=== PATIENT | female | born 1935 | race Caucasian/White ===

== ENCOUNTER → 2025-05-26 13:22 | Outpatient (REF) | payer OTHER, SELFPAY | LOC: PAVMRI 13:22 | PROVIDERS: ATTENDING PHYSICIAN Internal Medicine | DX: R51.9 Headache, unspecified (principal); Z86.73 Personal history of transient ischemic attack (TIA), and cerebral infarction without residual deficits | CPT/HCPCS: 70553; A9575 ==

== ENCOUNTER 2025-07-02 19:04 | Emergency (ER) | payer OTHER, SELFPAY ==
[2025-07-02 19:10] VITALS: BP 145/79
[2025-07-02 19:11] VITALS: BP 145/79
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
[2025-07-02 19:36] LABS: Hematocrit 38.9 % (37.0-47.0); Hemoglobin 13.4 g/dL (12.0-16.0); Mean Corp Hgb Conc. 34.4 g/dL (33.0-37.0); Mean Corpuscular Volume 88.0 fL (81.0-99.0); Nucleated Red Blood Cells % 0 %; Platelet Count 194 10^3/uL (130-400); Red Cell Dist. Width 12.0 % (11.5-14.5)
[2025-07-02 19:51] LABS: ALT (SGPT) 16 U/L (0-35); AST (SGOT) 21 U/L (14-36); Albumin 4.2 g/dl (3.5-5.0); Alkaline Phosphatase 94 U/L (38-126); Blood Urea Nitrogen 11 mg/dl (7-17); Calcium 9.2 mg/dl (8.4-10.2); Carbon Dioxide 27 mmol/L (22-30); Chloride 104 mmol/L (98-107); Estimated Creatinine Clearance 48 ml/min; Glucose 145 mg/dl (70-99); Magnesium 1.6 mg/dl (1.6-2.3); Potassium 4.0 mmol/L (3.5-5.1); Sodium 142 mmol/L (135-145); Total Protein 7.1 g/dl (6.3-8.2); eGFR > 60.00
[2025-07-02 20:00] VITALS: BP 146/80
[2025-07-02 20:42] LABS: Urine Character Clear (Clear)
[2025-07-02 20:53] LABS: Urine Red Blood Cell 0-2 /HPF (0-2)
[2025-07-02 20:55] LABS: COVID-19 Antigen Negative (Negative)
[2025-07-02 21:00] VITALS: BP 149/80
[2025-07-02 22:00] VITALS: BP 137/83
[2025-07-02 23:00] VITALS: BP 122/75
[2025-07-03] VITALS: BP 110/73
== END 2025-07-03 00:51 | disposition home or self-care (01) ==
LOC: EMR 19:04
PROVIDERS: Physician Assistant; EMERGENCY PHYSICIAN Emergency Medicine
DX: R53.1 Weakness (principal); R00.0 Tachycardia, unspecified; I49.1 Atrial premature depolarization; Z79.01 Long term (current) use of anticoagulants
CPT/HCPCS: 99284; 70450; 80053; 81003; 81015; 82550; 83735; 84439; 84443; 85025; 87077; 87086; 87502; 87811; 93005

== ENCOUNTER 2025-07-05 18:43 | Observation (INO) | payer OTHER, SELFPAY ==
[2025-07-05] VITALS (11 sets, daily range): BP systolic 116–160; BP diastolic 66–91; PULSE 84–87; BMI 20.1
--- NOTE | 2025-07-05 13:15 | ED.GENMED ---
History of Present Illness
<Bud Valles PA-C - Last Filed: 07/05/25 16:35>
General
Chief Complaint: Fainting/Passed Out
Source: patient
Time Seen by Provider: 07/05/25 12:58
History of Present Illness
History of Present Illness:
89-year-old female currently lives by herself but with close neighbors and family members presents after apparently having another syncopal episode last evening. She was here 3 nights ago after her legs gave out and she fell. She was found on the
floor by her neighbor. There was chicken on the stove that was burning. She thinks she may have passed out at that time. Since then she has had a significant headache that is more severe today. She is on Eliquis. Head CT last visit was
negative. She has a history of migraines this feels like a migraine but is more severe. She denies any vision change. No chest pain. She remembers waking up on the ground. She was not incontinent during any of these episodes. She does note she
may have bit her tongue during 1 of these episodes.
Phy Exam
<Bud Valles PA-C - Last Filed: 07/05/25 16:35>
Physical Exam
Physical Exam:
General: Well-appearing female no acute respiratory distress
HEENT normal cephalic no obvious scalp abrasion or hematoma pupils equal round reactive to light
Heart: Regular rate and rhythm
Lungs: Clear no wheeze
Abdomen is soft nontender
Neurologic exam alert and oriented no facial asymmetry no unilateral weakness
Extremities: No cyanosis
Course
<Bud Valles PA-C - Last Filed: 07/05/25 16:35>
Orders/Labs/Results
Orders:
Orders
07/05/25 12:11
ECG [Electrocardiogram (*1)] Urgent
Reason for Study: Syncope
EKG- Treatment ONCE
07/05/25 13:13
CT Cervical Spine W/o Iv Contr Urgent
Comment:
Reason For Exam: fall
CT Head W/o Iv Contrast Urgent
Comment:
Reason For Exam: fall, on eliquis, [place]
07/05/25 13:15
Orthostatic VS- Treatment ONCE
07/05/25 13:44
Complete Blood Count/With Diff Urgent
Comprehensive Metabolic Panel Urgent
Urinalysis Reflex To Culture Urgent
Date Specimen was Collected: 07/05/25
Time Specimen was Collected: 13:20
07/05/25 15:49
Acetaminophen [Tylenol] 650 mg PO NOW STA
Abnormal Lab Results
07/05/25
13:44
Absolute Lymphs (auto) 0.5 L 10^3/uL
(1.2-3.4)
Neutrophils % 80.1 H %
(42.2-75.2)
Lymphocytes % 8.1 L %
(20.5-51.1)
Monocytes % 11.0 H %
(1.7-9.3)
Sodium 134 L D mmol/L
(135-145)
Glucose 146 H mg/dl
(70-99)
AST 41 H U/L
(14-36)
07/05/25 13:44
07/05/25 13:44
Vital Signs
Initial and Last Documented VS:
Initial Vital Signs
Temp Pulse Resp BP Pulse Ox
97.9 F 95 20 151/86 95
07/05/25 12:08 07/05/25 12:08 07/05/25 12:08 07/05/25 12:08 07/05/25 12:08
Last Documented Vital Signs
Temp Pulse Resp BP Pulse Ox
97.9 F 85 25 153/77 94
07/05/25 12:08 07/05/25 15:24 07/05/25 15:00 07/05/25 15:00 07/05/25 15:00
<Yousif Romero MD - Last Filed: 07/05/25 13:37>
Orders/Labs/Results
Orders:
Orders
07/05/25 12:11
ECG [Electrocardiogram (*1)] Urgent
Reason for Study: Syncope
EKG- Treatment ONCE
07/05/25 13:13
CT Cervical Spine W/o Iv Contr Urgent
Comment:
Reason For Exam: fall
CT Head W/o Iv Contrast Urgent
Comment:
Reason For Exam: fall, on eliquis, [place]
07/05/25 13:15
Orthostatic VS- Treatment ONCE
07/05/25 13:44
Complete Blood Count/With Diff Urgent
Comprehensive Metabolic Panel Urgent
Urinalysis Reflex To Culture Urgent
Date Specimen was Collected: 07/05/25
Time Specimen was Collected: 13:20
07/05/25 15:49
Acetaminophen [Tylenol] 650 mg PO NOW STA
Abnormal Lab Results
07/05/25
13:44
Absolute Lymphs (auto) 0.5 L 10^3/uL
(1.2-3.4)
Neutrophils % 80.1 H %
(42.2-75.2)
Lymphocytes % 8.1 L %
(20.5-51.1)
Monocytes % 11.0 H %
(1.7-9.3)
Sodium 134 L D mmol/L
(135-145)
Glucose 146 H mg/dl
(70-99)
AST 41 H U/L
(14-36)
07/05/25 13:44
07/05/25 13:44
Vital Signs
Initial and Last Documented VS:
Initial Vital Signs
Temp Pulse Resp BP Pulse Ox
97.9 F 95 20 151/86 95
07/05/25 12:08 07/05/25 12:08 07/05/25 12:08 07/05/25 12:08 07/05/25 12:08
Last Documented Vital Signs
Temp Pulse Resp BP Pulse Ox
97.9 F 85 25 153/77 94
07/05/25 12:08 07/05/25 15:24 07/05/25 15:00 07/05/25 15:00 07/05/25 15:00
<Bud Valles PA-C - Last Filed: 07/05/25 16:35>
MDM/Problems Addressed
Differential Diagnosis Includes:
Fall syncope first orthostasis versus deconditioning versus seizure. No description of postictal episode seizure less likely. She now has significant headache after falling and is on Eliquis. Concern for possible intracranial hemorrhage. CT of
the head ordered as well as cervical spine. Will check labs and orthostatics.
<Bud Valles PA-C - Last Filed: 07/05/25 16:35>
*Pulse Oximetry
SaO2: 95
Oxygen Mode of Delivery: Room air
Patient hypoxic: no
*Critical Care Note
Total Time (30-74mins, 75-104mins- exclusive of procedures): Not Applicable
<Bud Valles PA-C - Last Filed: 07/05/25 16:35>
Update Note
Update Note:
CT of head and cervical spine negative for acute intracranial abnormality or fracture. Given recurrent syncope and someone who is 89 lives by herself admit to hospital for further workup. Discussed with emergency room attending who saw the patient
as well
ED Attending Note
<Bud Valles PA-C - Last Filed: 07/05/25 16:35>
-
Portions of this chart may have been created with voice recognition software.� Occasional wrong word or��sound alike� substitutions may have occurred due to the inherent limitations of voice recognition software.
<Yousif Romero MD - Last Filed: 07/05/25 13:37>
ED Attending Note
Patient seen and examined by attending physician: Yes
I performed the substantive portion of visit, reviewed & personally made and approve the management plan that is documented in note by myself or ALTON.: Yes
ED Attending Note:
Patient with ongoing weakness since a syncopal episode 2 days ago. Was in bed most of yesterday. Apparently passed out again. Complaining of ongoing headache. Mild neck pain. No other issues. Daughter thinks she may be slightly confused at
times.
On exam patient is nontoxic in no distress. Normocephalic atraumatic. Mild paracervical tenderness reviewed no spinal tenderness.
Lungs are clear and equal. Heart regular rate and rhythm no murmur. Abdomen nontender. Speech is normal. Cranial nerves II through XII intact. No nystagmus. Upper extremity strength is normal. Has decreased straight leg raising on the left
but plantar dorsiflexion of the foot are within normal limits.
Syncope weakness headache. Previous records reviewed. Patient warrants admission for further workup. Doubt CVA given the good strength at the foot and ankle. Workup in progress
Discharge Plan
Departure
Patient Disposition: Admit
Date of Disposition: 07/05/25
Time of Disposition: 16:35
Presentation/result/management discussed w/ accepting MD/DO: Hospitalist
Discharge Problem:
Syncope
Prescriptions:
No Action
cephalexin 500 MG capsule
500 mg PO BID 7 Days 0RF
Referrals:
Dawson Mckeon MD [Family Provider, Internal Medicine]
Interventions
Interventions:
*Risk Screen - Suicide Last Done: 07/05/25 12:08
*General Assessment Last Done: 07/05/25 12:08
Discharge Date and Time
Print Language: TELUGU
[2025-07-05 13:53] LABS: Urine Character Slightly Cloudy (Clear)
[2025-07-05 13:56] LABS: Hematocrit 38.7 % (37.0-47.0); Hemoglobin 13.1 g/dL (12.0-16.0); Mean Corp Hgb Conc. 33.9 g/dL (33.0-37.0); Mean Corpuscular Volume 89.6 fL (81.0-99.0); Nucleated Red Blood Cells % 0 %; Platelet Count 178 10^3/uL (130-400); Red Cell Dist. Width 12.2 % (11.5-14.5)
[2025-07-05 14:14] LABS: ALT (SGPT) 32 U/L (0-35); AST (SGOT) 41 U/L (14-36); Albumin 3.8 g/dl (3.5-5.0); Alkaline Phosphatase 86 U/L (38-126); Blood Urea Nitrogen 9 mg/dl (7-17); Calcium 9.1 mg/dl (8.4-10.2); Carbon Dioxide 29 mmol/L (22-30); Chloride 101 mmol/L (98-107); Glucose 146 mg/dl (70-99); Potassium 4.1 mmol/L (3.5-5.1); Sodium 134 mmol/L (135-145); Total Protein 6.7 g/dl (6.3-8.2); eGFR > 60.00
[2025-07-05] MEDS: TYLENOL 650 MG PO ×2 (16:24→21:22)
--- NOTE | 2025-07-05 17:20 | HPS.HSE ---
Family Physician
-
Family Physician: Dawson Mckeon
Chief Complaint
-
Migraine headache x 5 days possible syncope
History of Present Illness
89-year-old female from home where she lives alone states she had possible syncopal episode last evening. THe Patient past medical history of cognitive impairment short-term memory during hip surgery in December 2023. Her daughter states she has had
migraine aches that have come back typically twice a month since December 2023 she had outpatient MRI in May by neurology that was negative. She did not want to go on any prophylactic admission as her butalbital was working for headaches. She
reports on Friday her mother started with a headache that has been persistent is been sleeping most of the day for the past 4 days. Daughter states she had dizziness on Friday earlier and felt that night she did not develop her migraine headache
until after her fall. She has not experienced any relief of the frontal headache with her butalbital. She is unsure whether she passed out several days ago she reportedly was walking down the [place] towards the closet and woke up on the floor well
check and cooking in the kitchen and burning. Last night she states she was pushing her rollator had to go over a threshold when she noticed her coffee fall she believes that she bent over to try to get the coffee and was on the floor she is unsure
whether she had a syncopal episode. She was found by her neighbor checked on her around 7 PM got her back in bed. She complains of persistent frontal headache 6 out of 10 despite Tylenol. She complains of light sensitivity. She denies visual
disturbance, incontinence, fever, chills, chest pain, palpitations, cough, shortness of breath, abdominal pain, nausea, vomiting, diarrhea. Since her stroke in 2012 at [facility]. She had outpatient MRI here at [place] 05/26/2025 which was
negative. Her PCP Dr. Mckeon manages her migraines with butalbital.
The patient was seen in the ER 3 days ago for generalized weakness and fatigue claiming that her legs gave out while cooking chicken labs and CT head was normal she was discharged to home
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
Medical History
Past Medical History
Past Medical History: Reports Other
Additional Past Medical History:
Paroxysmal A-fib
Embolic CVA
Atypical migraine headaches
Cognitive impairment short-term since December 2023 after hip surgery
CAD/AL x 2
HLD
Hypertension
Former smoker
Diverticulitis, bowel resection for diverticulitis,
Pancreatic cyst
Past Surgical History: Reports Other
Additional Past Surgical History:
Bowel resection secondary to diverticulitis 2006
Bilateral cataract extraction
Fracture right hip repair
Social History
Tobacco: Former Smoker
Alcohol: None
Drug: None
Personal: Single
Living: Alone
Employment: Retired
Family History
Family History: Not pertinent
Allergies / Home Medications
Allergies reflects when Allergies were last updated in [facility].
Home Medications with original date entered in [facility]
Allergy/Medication List:
Allergies
Allergy/AdvReac Type Severity Reaction Status Date / Time
Sulfa (Sulfonamide Allergy Unknown Verified 07/05/25 12:10
Antibiotics)
Home Medications
B12 1,000 mg PO DAILY 07/05/25
Benadryl 50 mg PO HS 07/05/25
Calcium 600 1,200 mg PO DAILY 07/05/25
Vitamin D3 1 tab PO DAILY 07/05/25
apixaban 2.5 mg tablet (Eliquis) 2.5 mg PO BID 07/05/25
biotin 1 tab PO DAILY 07/05/25
xwkmsmrlkz-veqlagszbuhqd-fayuqtoa 50 mg-325 mg-40 mg tablet 1 tab PO BID PRN headache 07/05/25
krill oil 1 cap PO DAILY 07/05/25
lisinopril 5 mg tablet 5 mg PO DAILY 07/05/25
magnesium oxide 400 mg PO DAILY 07/05/25
metoprolol tartrate 25 mg tablet 25 mg PO HS 07/05/25
Review of Systems
-
History Source: Patient and Family (Daughter at bedside)
Constitutional: Reports Fatigue; Denies Fever or Chills
EENT: Reports Other (Frontal migraine headache, photophobia); Denies Tearing or Runny Nose
Respiratory: Denies Cough or Trouble Breathing
Cardiac: Reports Syncope (Possible patient unsure due to short-term memory impairment); Denies Chest Pain, Diaphoresis or Palpitations
Abdomen/GI: Denies Abdominal Pain, Nausea, Vomiting, Diarrhea or Constipated
: Denies Dysuria, Frequency, Flank Pain, Incontinence or Difficulty Voiding
Musculoskeletal: Denies Joint Pain or Edema
Skin: Denies Itching or Rash
Neurological: Reports Headache (Frontal); Denies Dizzy, Weakness or Numbness
Endocrine: Reports No Symptoms
Hematologic/Lymphatic: Reports No Symptoms
Psych: Reports Calm
Physical Exam
Vital Signs
Vital Signs
Temp Pulse Resp BP Pulse Ox
97.9 F 85 25 153/77 94
07/05/25 12:08 07/05/25 15:24 07/05/25 15:00 07/05/25 15:00 07/05/25 15:00
Physical Exam
General: Comfortable, Conversant and Pain (Headache 6 out of 10); No Fever or Chills
HEENT: NormoCephalic, Anicteric, Moist mucous membranes, Atraumatic, PERRLA (Enterally EOMs intact light sensitivity), [place] Conjunctivae and No Ptosis
Respiratory: Clear; No Wheezes, Rales or Rhonchi
Cardiac: S1/S2 and Regular Rhythm; No Murmur, Rub, Gallop or Peripheral Edema
Breast: Deferred by me
GI: Soft, Non Tender, Non Distended, Normal Bowel Sounds and No Hepatosplenomegaly
Genito-urinary: Deferred by me
Musculoskeletal: No Clubbing, No Cyanosis and No Edema
Skin: Warm and Dry; No Rash
Neuro: AO x 3 (Oriented to name, daughter, hospital, place of living but not recent events due to chronic short-term memory impairment), No Motor Deficits (While in bed), Cranial Nerves Intact and No Sensory Deficits; No Slurred Speech, Facial
Droop, Tremors or Sedated
Laboratory Results
-
07/05/25 13:44
07/05/25 13:44
Laboratory Results
Total Bilirubin 0.5 mg/dl (0.2-1.3) 07/05/25 13:44
AST 41 U/L (14-36) H 07/05/25 13:44
ALT 32 U/L (0-35) 07/05/25 13:44
Alkaline Phosphatase 86 U/L (38-126) 07/05/25 13:44
Data Reviewed
-
CT Scan: Report Reviewed by me
Lab Data: Labs Reviewed by me
Impression/Plan
-
Impression/plan:
Observation telemetry
#Fall possible syncope
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
Patient reports possible syncope 3 days ago legs felt weak
Due to cognitive impairment patient has no short-term recall of event but was found on floor by friend
Was COVID and flu negative on 07/02/2025
-Check orthostatic vitals
-Fall precautions
- PT/OT
EKG: Sinus rhythm with premature SVT complexes prior inferior infarct compared to July 02, 2025 no significant change was found
CT head/C-spine:1. No acute intracranial abnormality noted.
2. No acute fracture or subluxation of the cervical spine. Multilevel degenerative changes of the cervical spine.
3. Heterogeneous left thyroid goiter. Consider outpatient workup with dedicated thyroid ultrasound if not previously performed.
#Headache x 5 days likely patient's atypical migraine
#Hx atypical migraine headaches
Headache is lasted for past 3 days
Patient reports her butalbital is not helping-Dr. Mckeon PP manages her migraines has not seen neuro since 13 at [facility]
- Tylenol as needed
- Will try Benadryl
- Consult Neurology
Brain MRI 05/26/2025:No acute intracranial abnormality noted. Chronic senescent changes.
#Chronic cognitive impairment short-term memory since December 2023 post hip repair
Fall precautions
- PT/OT
#HTN
BP 153/77
-Check orthostatic vitals
- Continue metoprolol 25 mg at bedtime, lisinopril 5 mg daily with hold parameters
#Incidental left thyroid goiter
Check outpatient thyroid ultrasound
-TSH<0.02 free T4 1.15
#Paroxysmal A-fib
- Continue DENTAL FLOSS PACKER Eliquis,Continue metoprolol 25 mg at bedtime with hold parameters
#Embolic CVA 2012
Continue BP control
#CAD/AL x 2
Continue Eliquis, Krill oil
#HLD
Patient krill oil
#Former smoker
Other PMH:
diverticulitis
bowel resection for diverticulitis
pancreatic cyst
DVT prophylaxis
Continue DENTAL FLOSS PACKER Eliquis
Full code per daughter via phone
[2025-07-05] MEDS: BENADRYL 12.5 MG IV (18:44)
--- NOTE | 2025-07-05 19:17 | W.PN.UPDATE ---
Update Note
Progress Note Update
This note serves as an addendum to the H&P by cyber forensic specialist ALTON�
Kristyn Demar
HPI
89F Former smoker, Lives alone, HX CAD, MS , HLD, MCI, HX Prx AF & embolic CVA in 2013 ( Eliquis ) HX Migraine seen at ER :
- on Friday, onset of HUGHES has been persistent is been sleeping most of the day for the past 4 days.
- frontal HUGHES with her butalbital
- possible syncopal episode last evening
- was found by her neighbor checked on her around 7 PM got her back in bed.
- persistent frontal headache 6 out of 10 despite Tylenol.
- 05/26/25 OP Head MRI NEG
- PCP Dr. Mckeon manages her migraines with butalbital.
- seen in the ER 3 days ago for generalized weakness and fatigue claiming that her legs gave out while cooking chicken
( labs and CT head was normal she was discharged to home)
HX Chronic ambulatory dysfunction uses rollator at baseline.
ROS
denies visual disturbance, incontinence
denies fever, chills, chest pain, palpitations, cough, shortness of breath,
Relevant VS
Temp Pulse Resp BP Pulse Ox
97.9 F 80 16 149/91 96
07/05/25 12:08 07/05/25 18:30 07/05/25 18:30 07/05/25 15:51 07/05/25 18:30
PE
General: Conversant
HEENT: Moist mucous membranes, Atraumati
Resp: Clear
Cardiac: S1/S2, No Murmur
GI: Soft, Non Tender, Non Distended
MS: No Edema
Relevant Data
07/05/25
13:44
Absolute Lymphs (auto) 0.5 L
Neutrophils % 80.1 H
Lymphocytes % 8.1 L
Monocytes % 11.0 H
Sodium 134 L D
Glucose 146 H
AST 41 H
EKG:
SINUS RHYTHM WITH PREMATURE SUPRAVENTRICULAR COMPLEXES
INFERIOR INFARCT (CITED ON OR BEFORE 30-Jan-2017)
ABNORMAL ECG
WHEN COMPARED WITH ECG OF 02-Jul-2025 19:22,
NO SIGNIFICANT CHANGE WAS FOUND
Confirmed by Marcella SZYMANSKI ERIC ([id number]) on 07/05/2025 1:08:[address] head/C-spine:
1. No acute intracranial abnormality noted.
2. No acute fracture or subluxation of the cervical spine. Multilevel degenerative changes of the cervical spine.
3. Heterogeneous left thyroid goiter.
05/26/25 Brain MRI
- No acute intracranial abnormality noted.
- Chronic senescent changes.
ASSESSMENT & PLAN
Pending Rx reconciliation
Recurrent syncope DD: Migraine vs
Chronic ambulatory dysfunction uses rollator at baseline
- NEG COVID and flu( 07/02/2025)
- Orthostatic VS
- check CUS
- Fall precautions
- PT/OT
Persistent HUGHES - not improved with Butlbital
HX Migraine
- Tylenol as needed
- Will try Benadryl
- Neuro consult
HX Cognitive impairment especially short-term memory since December 2023
- Fall precautions
- PT/OT
Benign HTN - BP 153/77
- Check orthostatic vitals
- on metoprolol + lisinopril hold parameters
Incidental left thyroid goiter
- Check outpatient thyroid ultrasound
Paroxysmal A-fib
- TRANSMISSIONS SYSTEMS OPERATOR Eliquis, metoprolol
Chr condition
Embolic CVA 2012
CAD/MS x 2
HLD
Former smoker
diverticulitis
bowel resection for diverticulitis
pancreatic cyst
DVT Px: TRANSMISSIONS SYSTEMS OPERATOR Eliquis
Full code
OBS TLM
[2025-07-05] MEDS: LOPRESSOR 25 MG PO (21:21)
[2025-07-05] MEDS: ELIQUIS 2.5 MG PO (21:22)
--- NOTE | 2025-07-05 23:52 | PTCARENOTE ---
Pt arrived to room 434-01. Pt transferred from stretcher to bed. Pt AAOx3, VSS. Pt c/o 05/01 headache- see NOV. Oriented to room, call frazier placed within reach. Bed alarm in place.
[2025-07-06] VITALS (9 sets, daily range): BP systolic 135–167; BP diastolic 80–98; PULSE 82–94; O2SAT 94
[2025-07-06] MEDS: BENADRYL 12.5 MG IV (03:33)
--- NOTE | 2025-07-06 05:10 | W.PN.UPDATE ---
Update Note
Progress Note Update
states severe headache 08/01, not resolved with Tylenol and Benadryl. stable VS
Will order one time dose of Toradol.
[2025-07-06] MEDS: TORADOL 15 MG IV (05:29)
[2025-07-06 07:21] LABS: Hematocrit 38.7 % (37.0-47.0); Hemoglobin 13.0 g/dL (12.0-16.0); Mean Corp Hgb Conc. 33.6 g/dL (33.0-37.0); Mean Corpuscular Volume 91.5 fL (81.0-99.0); Nucleated Red Blood Cells % 0 %; Platelet Count 194 10^3/uL (130-400); Red Cell Dist. Width 12.3 % (11.5-14.5)
[2025-07-06 07:40] LABS: ALT (SGPT) 36 U/L (0-35); AST (SGOT) 37 U/L (14-36); Albumin 3.5 g/dl (3.5-5.0); Alkaline Phosphatase 90 U/L (38-126); Blood Urea Nitrogen 10 mg/dl (7-17); Calcium 8.8 mg/dl (8.4-10.2); Carbon Dioxide 29 mmol/L (22-30); Chloride 102 mmol/L (98-107); Estimated Creatinine Clearance 54 ml/min; Glucose 104 mg/dl (70-99); HDL Cholesterol 55 mg/dl; LDL Cholesterol, Calculated 136 mg/dl; Magnesium 1.9 mg/dl (1.6-2.3); Potassium 3.9 mmol/L (3.5-5.1); Sodium 136 mmol/L (135-145); Total Protein 6.3 g/dl (6.3-8.2); Very Low Density Lipoprotein 23 mg/dl (0-30); eGFR > 60.00
[2025-07-06] MEDS: TYLENOL 650 MG PO ×2 (07:47→21:05)
[2025-07-06] MEDS: ELIQUIS 2.5 MG PO ×2 (07:57→21:05)
[2025-07-06] MEDS: VITAMIN B-12 1000 MCG PO (07:57)
[2025-07-06] MEDS: ZESTRIL 5 MG PO (07:57)
[2025-07-06] MEDS: OSCAL CAL 500 PO (07:59)
--- NOTE | 2025-07-06 09:32 | CON.NEURO4 ---
Addendum entered and electronically signed by Misha Lui MD 07/06/25 20:47:
I have seen and examined the patient today on 07/06/2025. I have also discussed the assessment and the management plan with nurse practitioner Olamide Mittal. I generally agree with the note by nurse practitioner Olamide Mittal. Given below is
my impression and plan.
This is a 89-year-old female with a past medical history of atrial fibrillation and she is on apixaban, who has presented to the hospital on 07/05/25 with report of headache and possible syncopal event. Patient reports that she had hip surgery in
December 2023 and has had issues with cognitive impairment since receiving anesthesia. She notes a history of migraine headaches associated with photo/phonophobia, and nausea. She denies any visual aura with her headaches. She takes Fioricet for
headache relief which typically works well. She reports that she developed her usual migraine symptoms five days ago on 07/01/25, but the headache was unresponsive to Fioricet. She reports falling on 07/02/25, she was trying to hang a sweatshirt in
her closet and lost her balance. Then yesterday (07/05/25), she bent over to try an pick her coffee mug off of the ground and next thing she knew she was on the floor. Today (07/06/25), she reports that her migraine continues, it was an 11/10 but
she received prochlorperazine and ketorolac this morning and now it is an 8/10. She reports that since falling her left leg has been hurting. She is not followed by Neurology as an outpatient. Her PCP orders Fioricet and she had an MRI Brain
completed on 05/26/2025 due to migraines and memory loss which was negative for any acute abnormalities.
On neurologic examination, the patient is alert and oriented x 3, speech is clear, the cranial nerves II to XII are grossly intact, the motor strength is grossly 5/5 bilaterally, the sensations are grossly intact bilaterally, the cerebellar
examination does not show any limb ataxia.
. Do not see a role for MRI at this time as a MRI brain was done on 05/26/2025 due to migraines and memory loss which was negative for any acute abnormalities.
. Checks orthostatic vital signs BID.
. TTE pending.
. Continue home apixaban 2.5 mg BID.
. Fall precautions.
. Continue migraine cocktail as needed as per orders.
. Okay to resume home fioricet as needed.
. Follow-up with Neurology as an outpatient.
I attempted to contact her daughter but was unable to reach her.
Original Note:
Consultation - Neurology 4
-
CONSULTING PHYSICIAN: Misha Lui MD
REFERRING PHYSICIAN: Hospitalists/CONCETTA Nina
DICTATED BY: CONCETTA Marie
DATE/TIME OF REQUEST: 07/05/25
DATE/TIME OF CONSULTATION: 07/06/25
Reason for Consultation: Headache, fall
History of Present Illness:
This is a 89-year-old female who has presented to the hospital on 07/05/25 with report of headache and possible syncopal event. Patient is a poor historian, attempted to contact her daughter Ginny but unable to reach her. Patient reports that she
had hip surgery in December 2023 and has had issues with cognitive impairment since receiving anesthesia. She notes a history of migraine headaches associated with photo/phonophobia, and nausea. She denies any visual aura with her headaches. She has
been having about two a month and takes Fioricet for headache relief which typically works well. She reports that she developed her usual migraine symptoms five days ago on 07/01/25, but he headache was unresponsive to Fioricet. She reports falling
on 07/02/25, she was trying to hang a sweatshirt in her closet and lost her balance. Then yesterday (07/05/25), she bent over to try an pick her coffee mug off of the ground and next thing she knew she was on the floor. Today (07/06/25), she reports
that her migraine continues, it was an 11/10 but she received prochlorperazine and ketorolac this morning and now it is an 8/10. She denies any dizziness, vision changes, speech/swallow difficulty, numbness, and weakness. She reports that since
falling her left leg has been hurting. She has a walker at home and uses this occasionally at baseline. She is not followed by Neurology as an outpatient. Her PCP orders Fioricet and she had an MRI Brain completed on 05/26/2025 due to migraines and
memory loss which was negative for any acute abnormalities. She takes apixaban for Afib and denies missing any doses.
Past Medical History: Paroxysmal Afib (apixaban), CVA 2012, HTN, HLD, CAD, AR x2, migraines, diverticulitis, pancreatic cyst
Surgical History: Bowel resection, b/l cataract extraction, R hip repair
Family History: Reviewed and noncontributory.
Social History: Former smoker. Denies alcohol and illicit drug use.
Allergies: Sulfa.
Home Medications: See below.
Review of Symptoms:
Patient denies any fever, chest pain, shortness of breath, GI or symptoms.
�Per the HPI.�All systems are reviewed negative except above.
Physical Exam:
The patient is afebrile, abdomen is nondistended, breathing is unlabored, skin is warm and dry, no edema.
Neurologic Examination:
The patient is awake, alert and oriented x 3. She is able to follow commands and answer questions appropriately. There is no aphasia or dysarthria. On cranial nerve assessment, pupils are 3 mm bilateral, round and reactive to light and
accommodation. Visual bermudez are full. Extraocular movements are intact. Facial sensations are intact and bilaterally symmetrical, there is no facial asymmetry. Hearing is intact bilaterally to normal conversation volume. Tongue palate and uvula are
midline. Sternocleidomastoid strengths are full bilaterally. Motor strengths are 5/5 bilateral upper and lower extremities (LLE ROM is limited due to pain) on medical research Douglas scale. There is no drift or involuntary movement noted.
Sensations of touch are intact and bilaterally symmetrical. There was no extinction noted on double simultaneous stimulation. Coordination is intact by finger to nose bilaterally.
Lab Results: See below.
Neuro Imaging:
1. CT Head 07/05/25: No acute intracranial abnormality noted. No acute fracture or subluxation of the cervical spine. Multilevel degenerative changes of the cervical spine. Heterogeneous left thyroid goiter. Consider outpatient workup with
dedicated thyroid ultrasound if not previously performed.
2. CT Cervical Spine 07/05/25: No acute fracture or subluxation of the cervical spine. Multilevel degenerative changes of the cervical spine.
3. Carotid ultrasound 07/06/25: Mixed right carotid bulb plaque, minimal left carotid bulb mixed plaque. Based on velocity measurements, any internal carotid artery stenosis is less than 50% bilaterally. Antegrade flow bilateral vertebral arteries.
Differentials for the patient's presentation include:
1. Intractable migraine.
2. Frequent falls, possible syncope.
3. Very low concern for stroke contributing to falls.
Patient has the following risk factors for their symptoms: Migraines, fioricet usage, age, HTN, old stroke
Recommendations:
-Do not see a role for further neurological imaging at this time.
-Checks orthostatic vital signs BID.
-TTE pending.
-Continue home apixaban.
-Continue migraine cocktail as needed as per orders.
-Okay to resume home fioricet as needed, would reconsider use of this as an outpatient, consider a CGRP as an alternative.
-Checking blood work for metabolic abnormalities.
-Follow-up with Neurology as an outpatient.
Discussed patient care with: Dr. Lui, the patient
Vital Signs and Labs
-
Vital Signs and Labs:
Vital Signs
Temp Pulse Resp BP Pulse Ox
98.6 F 86 18 152/90 95
07/06/25 07:00 07/06/25 07:00 07/06/25 07:00 07/06/25 07:00 07/06/25 07:00
Lab Results
07/06/25 06:28
07/06/25 06:28
Sodium 136 mmol/L (135-145) 07/06/25 06:28
Potassium 3.9 mmol/L (3.5-5.1) 07/06/25 06:28
BUN 10 mg/dl (7-17) 07/06/25 06:28
Glucose 104 mg/dl (70-99) H 07/06/25 06:28
Calcium 8.8 mg/dl (8.4-10.2) 07/06/25 06:28
LDL Cholesterol, Calc 136 mg/dl 07/06/25 06:28
Medications
-
Active Medications
Generic Name Dose Route Start Last Admin
Trade Name Freq PRN Reason Stop Dose Admin
Acetaminophen 650 mg 07/05/25 20:30 07/06/25 07:47
Acetaminophen 325 Mg Tablet PO 08/02/25 20:29 650 mg
Q4HPRN PRN Administration
h/a, fever >100.4f
Apixaban 2.5 mg 07/05/25 21:15 07/06/25 07:57
Apixaban (Eliquis) 2.5 Mg Tablet PO 08/02/25 21:14 2.5 mg
BID KEYONA Administration
Calcium Carbonate 1,000 mg 07/06/25 08:00 07/06/25 07:59
Calcium Carbonate 500 Mg Tablet PO 08/03/25 07:59 Not Given
DAILY KEYONA
Cyanocobalamin 1,000 mcg 07/06/25 08:00 07/06/25 07:57
Cyanocobalamin (Vitamin B-12) 500 Mcg Tablet PO 08/03/25 07:59 1,000 mcg
DAILY KEYONA Administration
Diphenhydramine HCl 12.5 mg 07/05/25 20:30 07/06/25 03:33
Diphenhydramine 50 Mg/Ml 1 Ml Vial IV 08/02/25 20:29 12.5 mg
Q4HPRN PRN Administration
migraine headache
Lisinopril 5 mg 07/06/25 08:00 07/06/25 07:57
Lisinopril 5 Mg Tablet PO 08/03/25 07:59 5 mg
DAILY KEYONA Administration
Metoprolol Tartrate 25 mg 07/05/25 22:00 07/05/25 21:21
Metoprolol 25 Mg Regular Release Tablet PO 08/02/25 21:59 25 mg
HS KEYONA Administration
Ondansetron HCl 4 mg 07/05/25 20:30
Ondansetron 4 Mg/2 Ml Vial IV 08/02/25 20:29
Q6HPRN PRN
nausea and vomiting
Sodium Chloride 0 flush 07/05/25 21:00
Sodium Chloride 0.9% (Flush) Syringe IV 08/02/25 20:59
PER PROTOCOL KEYONA
Home Medications
�Medication �Instructions �Recorded
B12 1,000 mg PO DAILY 07/05/25
Benadryl 50 mg PO HS 07/05/25
Calcium 600 1,200 mg PO DAILY 07/05/25
Vitamin D3 1 tab PO DAILY 07/05/25
apixaban 2.5 mg tablet (Eliquis) 2.5 mg PO BID 07/05/25
biotin 1 tab PO DAILY 07/05/25
uiysjgxkel-upkrteslihwvr-rkpimrov 1 tab PO BID PRN headache 07/05/25
50 mg-325 mg-40 mg tablet
krill oil 1 cap PO DAILY 07/05/25
lisinopril 5 mg tablet 5 mg PO DAILY 07/05/25
magnesium oxide 400 mg PO DAILY 07/05/25
metoprolol tartrate 25 mg tablet 25 mg PO HS 07/05/25
--- NOTE | 2025-07-06 10:51 | W.PN.HOSP.TC ---
Today's Communication/Plan
-
see plan
Assessment / Plan
Assessment / Plan
Gen: NAD, AAOx3.
Eyes: EOMI, PERRLA, no scleral icterus.
Neck: supple.
CV: RRR, +S1/S2, no m/r/g.
Resp: CTAB, no rales, wheezes, or rhonchi.
Abd: +BS, soft, NT, ND
Skin: No rashes.
Neuro: CN 2-12 intact, non-focal.
Psych: Normal mood and affect.
CT head/C-spine 07/05:
1. No acute intracranial abnormality noted.
2. No acute fracture or subluxation of the cervical spine. Multilevel degenerative changes of the cervical spine.
3. Heterogeneous left thyroid goiter. Consider outpatient workup with dedicated thyroid ultrasound if not
MRI brain 05/26/25:No acute intracranial abnormality noted. Chronic senescent changes.
Acute on chronic migraine headache:
-headache x 5 days
-received Tramadol
-c/s neuro
-possible syncope which I suspect was due to pain (if the pt truly had a syncopal event). SR on tele (read by me). Check echo.
Other problems:
Chronic ambulatory dysfunction, uses a walker
Chronic cognitive impairment/short term memory loss
Essential HTN: cont ACEi/BB
Incidental left thyroid goiter: check outpatient thyroid ultrasound, TSH<0.02 free T4 1.15
PAF: cont Eliquis/BB
h/o embolic CVA
CAD with h/o [place]: cont BB
HLD: only on krill oil at home
FULL/Eliquis
Anticipated Discharge: Within 24 hours
Subjective/Interval History
-
Date of Service: July 06, 2025
Patient reports headache is improved.
Objective Data
-
Labs:
Laboratory Results
07/06/25
06:28
WBC 5.4
Hgb 13.0
Hct 38.7
Plt Count 194
Sodium 136
Potassium 3.9
Chloride 102
Carbon Dioxide 29
BUN 10
Creatinine 0.6
Glucose 104 H
Calcium 8.8
Total Bilirubin 0.5
AST 37 H
ALT 36 H
Alkaline Phosphatase 90
Vital Signs:
Vital Signs
Temp Pulse Resp BP Pulse Ox
98.6 F 86 18 152/90 95
07/06/25 07:00 07/06/25 07:00 07/06/25 07:00 07/06/25 07:00 07/06/25 07:00
[2025-07-06] MEDS: FIORICET 1 TAB PO ×2 (11:10→16:58)
--- NOTE | 2025-07-06 11:45 | CM ---
bartender manager reviewed patient's chart and patient was admitted under obs, SARMIENTO letter provided to patient and placed on chart, patient lives alone in a one story home, no steps to enter, patient is independent with adl's and ambulation. Patient has
a cane and walker that she does not use.
PCP: Dr. Mckeon
Pharmacy: [facility]
Plan; Home no needs.
--- NOTE | 2025-07-06 18:33 | PTCARENOTE ---
Patient received fiorcet for migraine pain - has varied between an 8 and 9 all day, with 10 at the start. Has been keeping room dim and quiet, has been resting quietly. Family in to visit , call frazier in reach.
[2025-07-06] MEDS: LOPRESSOR 25 MG PO (21:05)
[2025-07-07 03:58] VITALS: BP 145/80
[2025-07-07] MEDS: TYLENOL 650 MG PO (03:59)
[2025-07-07 07:00] VITALS: BP 159/85; BP 166/85; PULSE 67; PULSE 70
[2025-07-07] MEDS: OSCAL CAL 500 PO (08:10)
[2025-07-07] MEDS: ZOFRAN 4 MG IV (08:10)
[2025-07-07] MEDS: VITAMIN B-12 1000 MCG PO (08:11)
[2025-07-07] MEDS: ZESTRIL 5 MG PO (08:11)
[2025-07-07] MEDS: ELIQUIS 2.5 MG PO ×2 (08:11→20:13)
--- NOTE | 2025-07-07 08:40 | PTCARENOTE ---
Pt c/o nausea this morning- received Zofran as requested. Continues with c/o headache , '8' out of 10 this am which pt states is 'a little better than yesterday. Will continue to monitor.
--- NOTE | 2025-07-07 10:46 | W.PN.HOSP.TC ---
Today's Communication/Plan
-
see plan
Assessment / Plan
Assessment / Plan
Gen: NAD, AAOx3.
Eyes: EOMI, PERRLA, no scleral icterus.
Neck: supple.
CV: RRR, +S1/S2, no m/r/g.
Resp: CTAB, no rales, wheezes, or rhonchi.
Abd: +BS, soft, NT, ND
Skin: No rashes.
Neuro: CN 2-12 intact, non-focal.
Psych: Normal mood and affect.
CT head/C-spine 07/05:
1. No acute intracranial abnormality noted.
2. No acute fracture or subluxation of the cervical spine. Multilevel degenerative changes of the cervical spine.
3. Heterogeneous left thyroid goiter. Consider outpatient workup with dedicated thyroid ultrasound if not
MRI brain 05/26/25:No acute intracranial abnormality noted. Chronic senescent changes.
Echo:
1. Normal LV size and mildly decreased left ventricular function.
2. Left ventricular ejection fraction is mildly reduced with an ejection fraction of 41 % by Contreras's biplane method of discs.
3. LV Wall Motion: entire inferior wall, apical anterior segment, apex, mid and apical inferior septum, and apical lateral segment are abnormal, as described below.
4. Right ventricular size and systolic function are within normal limits.
5. Mild aortic regurgitation.
6. Mild mitral valve regurgitation.
7. Mild tricuspid regurgitation. Estimated pulmonary artery pressure of 35 mmHg assuming a right atrial pressure of 3 mmHg.
8. There are no prior studies available for comparison.
Possible syncope:
-It the pt had a true syncopal episode I suspect it was due to pain
-SR on tele (read by me)
-echo with EF 41%
-c/s cards, discussed with cards
GMDT:
-change BB to Toprol XL 50mg daily
-start SGLT2i
-further GMDT based on BP trend after these changes
Acute on chronic migraine headache:
-headache x 5 days
-received Tramadol
-seen by neuro, discussed with neuro on 07/06, recs were to continue Fioricet PRN
Other problems:
Chronic ambulatory dysfunction, uses a walker
Chronic cognitive impairment/short term memory loss
Essential HTN: cont ACEi/BB
Incidental left thyroid goiter: check outpatient thyroid ultrasound, TSH<0.02 free T4 1.15
PAF: cont Eliquis/BB
h/o embolic CVA
CAD with h/o [place]: cont BB
HLD: only on krill oil at home
FULL/Eliquis
Anticipated Discharge: Within 24 hours
Subjective/Interval History
-
Date of Service: July 07, 2025
Headache slightly better than yesterday.
Objective Data
-
Vital Signs:
Vital Signs
Temp Pulse Resp BP Pulse Ox
97.9 F 73 16 159/85 97
07/07/25 07:00 07/07/25 07:00 07/07/25 07:00 07/07/25 07:00 07/07/25 07:00
I&O
07/06/25 07/07/25 07/08/25
06:59 06:59 06:59
Intake Total 48 / 48
Balance 48 / 48
[2025-07-07 11:00] VITALS: BP 134/79
[2025-07-07] MEDS: FARXIGA 10 MG PO (11:47)
[2025-07-07] MEDS: TOPROL XL 50 MG PO (11:48)
--- NOTE | 2025-07-07 14:33 | CON.CAR ---
Addendum entered and electronically signed by Jong Simpson MD 07/07/25 15:57:
I saw and examined the patient.
The Top Distribution Executive's note was reviewed and I agree with the note.
Comment:
GEN: No distress, awake, Ox3
HEENT: supple, anicteric, mmm
LUNGS: CTA, no wheezes/rales
CV: Reg, S1/S2, 1/6 syst LSB, no galllop
ABD: soft, BS+, NT/ND
EXT: No edema
NEURO: Gross non-focal
SKIN: No rash
Plan
89-year-old female with past medical history of coronary artery disease, paroxysmal atrial fibrillation, hypertension, hyperlipidemia presents with an episode of syncope. History is provided by the patient and her daughter. She had an episode 4
days ago where she passed out. She is unsure if she may have tripped or not. She denied any chest pain, palpitations associated with that episode. She went to the emergency room where imaging of her brain was unremarkable. She then went home and
returned feeling weak and feeling poor. She had malaise and fatigue according to her daughter. She denies any fevers or chills. She continues to deny any palpitations although daughter states her heart rate was intermittently elevated. Her
daughter states she has been staying well-hydrated. No bleeding. Repeat head CT was unremarkable.
Echocardiogram read by myself reveals EF 41% with inferoapical hypokinesis, normal RV, mild AI/MR/TR normal PA pressure
EKG with sinus rhythm with nonspecific T wave abnormalities.
Telemetry overall unremarkable for any significant pauses or marked bradycardia.
At this point remains unclear the etiology of her syncope. No clear orthostasis. Will review old echo to reevaluate LVEF. With no chest pains would not pursue ischemic evaluation.
We will check troponin x 1.
Would continue Toprol and Eliquis for now. Will follow on telemetry for another 24 hours. Could consider Linq monitor or long-term monitoring as an outpatient.
If everything remains stable okay to follow-up with her outpatient paper roll machine operator.
Original Note:
Consultation
Consultation Request
Date/Time Consultation Performed: 07/07/25
Requesting Provider: Dr. Ellis
Performing Provider: Marycruz Carey PA-C
Reason for Consultation: syncope, CM
Medical History
-
Chief Complaint: fall
History of Present Illness:
Patient is an 89 yo F with PMH of CAD with prior inferior infarct 1990 and known distal to apical LAD occlusion with collaterals by cath 2007, PAF on chronic Eliquis, hypertension, hyperlipidemia, sigmoid colon resection in 2007 who presents to [facility]
after an episode of syncope. She reports she was reaching up to get something out of her closet that was on a silk hanger and next thing she knew she was on the floor. She thinks she may have passed out but it was 'quick'. She reports then the
following day she had a fall where she states she 'tripped over her feet' but is not sure what happened. She denies passing out with that episode. As part of her evaluation during admission she underwent echocardiogram which showed EF 41%
resulting in cardiology consultation. She denies chest pain or shortness of breath, palpitations.
PMH:
CAD with prior inferior infarct 1990, known distal to apical LAD occlusion with collaterals by cath 2007
PAF
Chronic Eliquis anticoagulation
Hypertension
Hyperlipidemia
History of sigmoid colon resection in 2007
Past Medical History
Past Medical History: Other (in HPI)
Social History
Tobacco: Non-Smoker
Alcohol: Occasional
Living: Alone
Employment: Retired
Family History
Family History: CAD and Other (AAA)
Allergies / Home Medications
Allergy/AdvReac Type Severity Reaction Status Date / Time
Sulfa (Sulfonamide Allergy Unknown Verified 07/05/25 12:10
Antibiotics)
�Medication �Instructions �Recorded �Confirmed �Type
B12 1,000 mg PO DAILY Supplement 07/05/25 07/05/25 History
Benadryl 50 mg PO HS Sleep 07/05/25 07/05/25 History
Calcium 600 1,200 mg PO DAILY Supplement 07/05/25 07/05/25 History
Vitamin D3 1 tab PO DAILY 07/05/25 07/05/25 History
apixaban 2.5 mg tablet (Eliquis) 2.5 mg PO BID Blood Clot 07/05/25 07/05/25 History
Prevention/Tx
biotin 1 tab PO DAILY Supplement 07/05/25 07/05/25 History
firarvphqq-mdohdegpkshyl-jhzsjrbn 1 tab PO BID PRN headache 07/05/25 07/05/25 History
50 mg-325 mg-40 mg tablet
krill oil 1 cap PO DAILY Supplement 07/05/25 07/05/25 History
lisinopril 5 mg tablet 5 mg PO DAILY Blood Pressure 07/05/25 07/05/25 History
magnesium oxide 400 mg PO DAILY Supplement 07/05/25 07/05/25 History
metoprolol tartrate 25 mg tablet 25 mg PO HS Blood Pressure 07/05/25 07/05/25 History
Review of Systems
-
History Source: Patient
All other systems: Negative unless noted
Physical Exam
Vital Signs
Temp Pulse Resp BP Pulse Ox
98.7 F 71 15 134/79 97
07/07/25 11:00 07/07/25 11:00 07/07/25 11:00 07/07/25 11:00 07/07/25 11:00
Lab Results
07/06/25 06:28
07/06/25 06:28
Physical Exam
General: No Apparent Distress, Comfortable and Other (frail appearing. sitting in chair)
HEENT: Normocephalic, Anicteric and Moist Mucous Membranes
Respiratory: Clear and Non Labored Respirations
Cardiac: S1/S2 and Regular Rhythm
GI: Soft, Non Tender, Non Distended and Normal Bowel Sounds
Musculoskeletal: No Clubbing, No Cyanosis and No Edema
Skin: Warm and Dry
Neuro: AO x 3
Impression / Plan
-
Primary Tie Binder: Dr. Sullivan of [facility]
Assessment:
Presentation with syncope, fall
Cardiomyopathy, EF 40% by echo
CAD with prior inferior infarct 1990, known distal to apical LAD occlusion with collaterals by cath 2007
PAF
Chronic Eliquis anticoagulation
Hypertension
Hyperlipidemia
History of sigmoid colon resection in 2007
L thyroid goiter by imaging
Echo 09/2014 at outside hospital: EF 55 to 60%, mild MR, trace TR, RVSP 25 to 30 mmHg, no AR, ascending aorta 3.7 cm
ECHO 07/06/25: EF 41%, entire inferior wall, apical anterior segment, apex, mid and apical inferior septum, apical lateral segments abnormal, mild AR, mild MR, mild TR, PAP 35 mmHg
Plan:
- Patient presents with both what appears to be syncopal episode followed by a fall the following day. Etiology of these episodes unclear. No CP, SOB, palpitations
- From cardiac standpoint appears to be in sinus rhythm with brief run of atrial tachycardia on review of telemetry overnight. EKG SR with PACs and prior inferolateral infarct. Continue outpatient Toprol
- EF by echo noted to be 41%, new compared to prior records obtained and reviewed from primary paper roll machine operator
- GDMT of CM as able. no evidence of acute CHF. continue toprol, lisinopril.
- not orthostatic by review of VS.
- head CT negative for acute abnormalities. continue eliquis 2.5mg BID
- PT evaluation as patient notes ongoing leg discomfort
- OP follow up with Dr. Sullivan to consider ischemic evaluation
Data Reviewed
-
EKG: Tracing Personally Visualized and interpreted
CT Scan: Report Reviewed by me
Medical Tests (Nuc Med, Echo etc): Report Reviewed by me
Labs: Labs Reviewed by me
Old Records: Requested and Reviewed
--- NOTE | 2025-07-07 14:39 | CM ---
Home no needs.
Plan; Home no needs.
[2025-07-07 15:00] VITALS: BP 135/83
[2025-07-07 18:17] LABS: Troponin I 0.052 ng/ml
--- NOTE | 2025-07-07 18:32 | PTCARENOTE ---
Trop 0.052, hospitalist notified.
[2025-07-07 20:15] VITALS: BP 151/85
[2025-07-07 23:14] VITALS: BP 143/72
[2025-07-08 03:09] VITALS: BP 152/83
[2025-07-08 07:00] VITALS: BP 140/81
[2025-07-08] MEDS: OSCAL CAL 500 1000 MG PO (08:10)
[2025-07-08] MEDS: VITAMIN B-12 1000 MCG PO (08:10)
[2025-07-08] MEDS: FARXIGA 10 MG PO (08:10)
[2025-07-08] MEDS: TOPROL XL 50 MG PO (08:10)
[2025-07-08] MEDS: ZESTRIL 5 MG PO (08:10)
[2025-07-08] MEDS: ELIQUIS 2.5 MG PO (08:11)
--- NOTE | 2025-07-08 08:36 | W.PN.HOSP.TC ---
Today's Communication/Plan
-
d/c
Assessment / Plan
Assessment / Plan
Gen: NAD, AAOx3.
Eyes: EOMI, PERRLA, no scleral icterus.
Neck: supple.
CV: remains RRR, +S1/S2, no m/r/g.
Resp: remains CTAB, no rales, wheezes, or rhonchi.
Abd: remains +BS, soft, NT, ND
Skin: No rashes.
Neuro: CN 2-12 intact, non-focal.
Psych: Normal mood and affect.
CT head/C-spine 07/05:
1. No acute intracranial abnormality noted.
2. No acute fracture or subluxation of the cervical spine. Multilevel degenerative changes of the cervical spine.
3. Heterogeneous left thyroid goiter. Consider outpatient workup with dedicated thyroid ultrasound if not
MRI brain 05/26/25:No acute intracranial abnormality noted. Chronic senescent changes.
Echo:
1. Normal LV size and mildly decreased left ventricular function.
2. Left ventricular ejection fraction is mildly reduced with an ejection fraction of 41 % by Contreras's biplane method of discs.
3. LV Wall Motion: entire inferior wall, apical anterior segment, apex, mid and apical inferior septum, and apical lateral segment are abnormal, as described below.
4. Right ventricular size and systolic function are within normal limits.
5. Mild aortic regurgitation.
6. Mild mitral valve regurgitation.
7. Mild tricuspid regurgitation. Estimated pulmonary artery pressure of 35 mmHg assuming a right atrial pressure of 3 mmHg.
8. There are no prior studies available for comparison.
Carotid U/S: Mixed right carotid bulb plaque, minimal left carotid bulb mixed plaque. Based on velocity measurements, any internal carotid artery stenosis is less than 50% bilaterally. Antegrade flow bilateral vertebral arteries.
Possible syncope:
-It the pt had a true syncopal episode I suspect it was due to pain
-SR on tele (read by me)
-echo with EF 41%
-cards saw in c/s, currently not recommending ischemic evaluation and cardiology has cleared the pt for d/c
-GMDT: BB/SGLT2i/ACEi
Acute on chronic migraine headache:
-headache x 5 days
-received Tramadol
-seen by neuro, discussed with neuro on 07/06, recs were to continue Fioricet PRN
Other problems:
Chronic ambulatory dysfunction, uses a walker
Chronic cognitive impairment/short term memory loss
Essential HTN: cont ACEi/BB
Incidental left thyroid goiter: check outpatient thyroid ultrasound, TSH<0.02 f4 1.15
PAF: cont Eliquis/BB
h/o embolic CVA
CAD with h/o CA: cont BB
HLD: only on krill oil at home
FULL/Eliquis
Total time spent on d/c = 34 min. This included today's physical exam, progress note, review of laboratory and diagnostic data, preparation of discharge documents and prescriptions, and discussions about the pt's hospital course and discharge plan
with the patient and other medical assistant supervisor involved in the patient's care.
Anticipated Discharge: Today
Subjective/Interval History
-
Date of Service: July 08, 2025
Denies CP/SOB/headache.
Objective Data
-
Vital Signs:
Vital Signs
Temp Pulse Resp BP Pulse Ox
97.9 F 81 18 140/81 97
07/08/25 07:00 07/08/25 08:10 07/08/25 07:00 07/08/25 08:10 07/08/25 07:00
I&O
07/07/25 07/08/25 07/09/25
06:59 06:59 06:59
Intake Total 48 / 48 240 / 240
Balance 48 / 48 240 / 240
[2025-07-08] MEDS: ZOFRAN 4 MG IV (09:17)
[2025-07-08 11:00] VITALS: BP 120/74; BP 126/67; PULSE 71; PULSE 85
--- NOTE | 2025-07-08 12:06 | CM ---
Patient is for discharge to home no needs.
Plan; Home no needs.
--- NOTE | 2025-07-08 12:09 | W.PN.CARDCBS ---
Addendum entered and electronically signed by Jong Simpson MD 07/08/25 14:55:
I saw and examined the patient.
The Gerontological Nurse Practitioner's note was reviewed and I agree with the note.
Comment:
GEN: No distress, awake, Ox3
HEENT: supple, anicteric, mmm
LUNGS: CTA, no wheezes/rales
CV: Reg, S1/S2, 1/6 syst LSB, no murmur
ABD: soft, BS+, NT/ND
EXT: No edema
NEURO: Gross non-focal
SKIN: No rash
plan:
Telemetry stable with only a few brief episodes of atrial tachycardia. Echo was reviewed with family yesterday. She has known coronary artery disease.
Stable for discharge from cardiology standpoint. No significant abnormal rhythms. Continue Toprol, Eliquis, and lisinopril.
Farxiga added this hospitalization.
She can follow with Dr. Sullivan to further discuss consideration for outpatient ischemic evaluation. At 89 with no chest pains would be reasonable to treat conservatively.
Original Note:
Today's Communication / Plan
-
Medical therapy for cardiomyopathy by echo�Toprol, lisinopril. Farxiga new this admission
Outpatient cardiac follow-up with Dr. Sullivan and can discuss ischemic evaluation at that time
Okay for discharge
Impression / Plan
-
Primary Clay Dry Press Helper: Dr. Sullivan of [facility]
Assessment:
Presentation with syncope, fall
Cardiomyopathy, EF 40% by echo
CAD with prior inferior infarct 1990, known distal to apical LAD occlusion with collaterals by cath 2007
PAF
Chronic Eliquis anticoagulation
Hypertension
Hyperlipidemia
History of sigmoid colon resection in 2007
L thyroid goiter by imaging
Echo 09/2014 at outside hospital: EF 55 to 60%, mild MR, trace TR, RVSP 25 to 30 mmHg, no AR, ascending aorta 3.7 cm
ECHO 07/06/25: EF 41%, entire inferior wall, apical anterior segment, apex, mid and apical inferior septum, apical lateral segments abnormal, mild AR, mild MR, mild TR, PAP 35 mmHg
Plan:
- Patient presents with both what appears to be syncopal episode followed by a fall the following day. Etiology of these episodes unclear. No CP, SOB, palpitations
- Not orthostatic by review of vital signs
- In sinus rhythm on review of telemetry overnight with possibly 1 brief run of A. tach versus A-fib. Continue outpatient Toprol, Eliquis 2.5 mg twice daily
- EF by echo this admission noted to be 41%, new compared to records obtained from primary porter head
- Continue GDMT with Toprol, lisinopril. No evidence of acute CHF. SGLT2 inhibitor added by primary service
- Trops flat in 0.04�0.05 range in setting of known prior CAD as above. No chest pain
- We discussed options including stress testing as outpatient, can be discussed further with her primary porter head, Dr. Sullivan
- Okay for discharge from cardiac standpoint
- Discussed with hospitalist
Progress Note - Clay Dry Press Helper
Subjective
Date of Service: July 08, 2025
No chest pain, palpitations. Eager for DC
Objective
Labs:
07/06/25 06:28
07/06/25 06:28
Labs
Hgb 13.0 g/dL (12.0-16.0) 07/06/25 06:28
Hct 38.7 % (37.0-47.0) 07/06/25 06:28
Plt Count 194 10^3/uL (130-400) 07/06/25 06:28
Sodium 136 mmol/L (135-145) 07/06/25 06:28
Potassium 3.9 mmol/L (3.5-5.1) 07/06/25 06:28
BUN 10 mg/dl (7-17) 07/06/25 06:28
Creatinine 0.6 mg/dL (0.6-1.0) 07/06/25 06:28
Glucose 104 mg/dl (70-99) H 07/06/25 06:28
Troponins
07/07/25
17:42
Troponin I 0.052 H*
Vital Signs and I&O:
Vital Signs
Temp Pulse Resp BP Pulse Ox
98.4 F 71 14 126/67 99
07/08/25 11:00 07/08/25 11:00 07/08/25 11:00 07/08/25 11:00 07/08/25 11:00
Vital Signs
Temp Pulse Resp BP Pulse Ox
98.4 F 71 14 126/67 99
07/08/25 11:00 07/08/25 11:00 07/08/25 11:00 07/08/25 11:00 07/08/25 11:00
Intake & Output
07/06/25 07/07/25 07/08/25 07/09/25
07:59 07:59 07:59 07:59
Intake Total 48 / 48 240 / 240
Balance 48 / 48 240 / 240
Physical Exam
Physical Exam
GEN: No distress, awake, alert, oriented x3. Sitting in chair
HEENT: supple, anicteric, mmm, EOMI
LUNGS: CTA bilaterally, no wheezes/rales
CV: Reg, S1/S2, no murmur
ABD: soft, BS+, NT/ND
EXT: No cyanosis, clubbing, edema
NEURO: Gross non-focal
SKIN: Warm, pink, dry. No rash
[2025-07-08 13:02] LABS: Troponin I 0.046 ng/ml
[2025-07-08 15:00] VITALS: BP 106/60
--- NOTE | 2025-07-08 16:18 | W.DCSUMMARY ---
Discharge Summary
Discharge Data
Date of Admission: 07/05/25
Date of Discharge: 07/08/25
-
Pending Results: No
Hospital Course
Primary diagnoses:
Migraine headache
Possible syncope
New diagnosis of heart failure with reduced ejection fraction (not in acute exacerbation)
Secondary diagnoses:
Chronic ambulatory dysfunction, uses a walker
Chronic cognitive impairment/short term memory loss
Essential hypertension
Incidental left thyroid goiter
Paroxysmal atrial fibrillation
h/o embolic cerebrovascular accident
Coronary disease with h/o myocardial infarction
Hyperlipidemia
Consultants:
Neurology
Cardiology
Imaging:
CT head/C-spine 07/05:
1. No acute intracranial abnormality noted.
2. No acute fracture or subluxation of the cervical spine. Multilevel degenerative changes of the cervical spine.
3. Heterogeneous left thyroid goiter. Consider outpatient workup with dedicated thyroid ultrasound if not
MRI brain 05/26/25:No acute intracranial abnormality noted. Chronic senescent changes.
Echo:
1. Normal LV size and mildly decreased left ventricular function.
2. Left ventricular ejection fraction is mildly reduced with an ejection fraction of 41 % by Contreras's biplane method of discs.
3. LV Wall Motion: entire inferior wall, apical anterior segment, apex, mid and apical inferior septum, and apical lateral segment are abnormal, as described below.
4. Right ventricular size and systolic function are within normal limits.
5. Mild aortic regurgitation.
6. Mild mitral valve regurgitation.
7. Mild tricuspid regurgitation. Estimated pulmonary artery pressure of 35 mmHg assuming a right atrial pressure of 3 mmHg.
8. There are no prior studies available for comparison.
Carotid U/S: Mixed right carotid bulb plaque, minimal left carotid bulb mixed plaque. Based on velocity measurements, any internal carotid artery stenosis is less than 50% bilaterally. Antegrade flow bilateral vertebral arteries.
89-year-old female presented with chief complaints of 5 days of migraine headache and possible syncope as outlined in the H&P done on admission. Hospital course per problem list:
Possible syncope: If the pt had a true syncopal episode I suspect it was due to pain. Patient was monitored on sinus rhythm and had no arrhythmias that would cause syncope. She was in sinus rhythm. She had an echocardiogram as above with a new
ejection fraction of 41%. Cardiology saw in consultation and did not recommend ischemic evaluation (cardiology has cleared the pt for d/c). Patient was placed on beta-nina and SGLT2i for GDMT for newly diagnosed heart failure with reduced
ejection fraction.
Acute on chronic migraine headache: The patient's headache resolved while hospitalized. She received tramadol. She was seen in consultation by neurology and as per my discussion with neurology there were no new recommendations other than to
continue Fioricet PRN.
Incidental left thyroid goiter: TSH<0.02 f4 1.15. The patient will need to follow-up with endocrinology and have an outpatient thyroid ultrasound.
Discharge Plan
-
Patient Disposition: Home (Routine Discharge)
Discharge Diagnosis/Procedures: Migraine headache, possible syncope, new diagnosis of heart failure with reduced ejection fraction (not in acute exacerbation)
Condition: Good
Diet: Restrict fluids to 48 oz
Activity: As tolerated
Driving Restrictions: As prior to admission
Specialty Instructions: Weigh Daily- Call MD for wt gain/loss 3 lbs overnight/5 lbs in 1 week
Activity Restrictions/Additional Instructions:
You need to make an appointment with endocrinology to discuss your thyroid function tests and your L thyroid goiter.
Referrals:
Dawson Mckeon MD [Family Provider, Internal Medicine]
Prescriptions:
New
dapagliflozin propanediol [Farxiga] 10 mg tablet
10 mg PO DAILY Qty: 30 0RF
metoprolol succinate [Toprol XL] 50 mg tablet extended release 24 hr
50 mg PO DAILY Qty: 30 0RF
Continued
B12
1,000 mg PO DAILY
fsbqennhsk-lkutyngsoqlms-oogx 50-325-40 mg tablet
1 tab PO BID PRN (Reason: headache)
lisinopril 5 mg tablet
5 mg PO DAILY
Eliquis 2.5 mg tablet
2.5 mg PO BID
Benadryl
50 mg PO HS
biotin
1 tab PO DAILY
magnesium oxide
400 mg PO DAILY
Calcium 600
1,200 mg PO DAILY
Vitamin D3
1 tab PO DAILY
krill oil
1 cap PO DAILY
Discontinued
metoprolol tartrate 25 mg tablet
25 mg PO HS
Discharge Orders:
Discharge Patient (As Directed); Ordered 07/08/25
Ordered By: Derek Ellis
Discharge Date and Time
Print Language: EMIRATI
== END 2025-07-08 17:32 | disposition home or self-care (01) ==
LOC: 4 WEST ACU 18:43
PROVIDERS: Clinical Nurse Specialist Family Health; Physician Assistant; ADMITTING PHYSICIAN Internal Medicine; ATTENDING PHYSICIAN Internal Medicine; CONSULT PHYSICIAN Internal Medicine Cardiovascular Disease; CONSULT PHYSICIAN Psychiatry & Neurology Neurology; EMERGENCY PHYSICIAN Emergency Medicine; FAMILY PHYSICIAN Internal Medicine
DX: G43.009 Migraine without aura, not intractable, without status migrainosus (principal); I50.20 Unspecified systolic (congestive) heart failure; I48.0 Paroxysmal atrial fibrillation; E04.2 Nontoxic multinodular goiter; I25.2 Old myocardial infarction; I25.10 Atherosclerotic heart disease of native coronary artery without angina pectoris; E78.5 Hyperlipidemia, unspecified; Z86.73 Personal history of transient ischemic attack (TIA), and cerebral infarction without residual deficits; I11.0 Hypertensive heart disease with heart failure; R26.2 Difficulty in walking, not elsewhere classified; Z87.891 Personal history of nicotine dependence; Z79.899 Other long term (current) drug therapy; I42.9 Cardiomyopathy, unspecified; Z79.01 Long term (current) use of anticoagulants
CPT/HCPCS: 70450; 72125; 80053; 80061; 81003; 83735; 84484; 85025; 93005; 93306; 93880; 97163; 97166; 99285; G0378